=== PATIENT | male | born 1990 | race Hispanic/Latino ===

== ENCOUNTER 2024-02-01 13:10 | Emergency (ER) | payer BC ==
[~2024-02-01] VITALS: Ht 170.2 cm; Wt 83.9 kg
[2024-02-01 13:49] LABS: BASOPHILS # (AUTO) 0.08 K/uL (0.00-0.20); BASOPHILS % (AUTO) 0.8 % (0.0-5.0); EOSINOPHILS # (AUTO) 0.22 K/uL (0.00-0.70); EOSINOPHILS % (AUTO) 2.1 % (0.0-8.0); HEMATOCRIT 46.5 % (42-54); IMMATURE GRANULOCYTE ABSOLUTE 0.04 K/uL (0-1); LYMPHOCYTES # (AUTO) 1.7 K/uL (1.0-4.8); LYMPHOCYTES % (AUTO) 16.2 % (21.0-51.0); MEAN CORPUSCULAR HEMOGLOBIN 30.6 pg (27.0-33.0); MEAN CORPUSCULAR HGB CONC 34.2 g/dL (32.0-36.0); MEAN CORPUSCULAR VOLUME 89.6 fL (79-99); MONOCYTES # (AUTO) 0.7 K/uL (0.1-1.0); MONOCYTES % (AUTO) 6.3 % (3.0-13.0); NEUTROPHILS # (AUTO) 7.8 K/uL (1.8-7.7); NEUTROPHILS % (AUTO) 74.2 % (40.0-77.0); PLATELET COUNT (AUTO) 204 K/uL (130-400); RED BLOOD CELL COUNT(AUTO) 5.19 MIL/uL (4.50-6.20); WHITE BLOOD COUNT (AUTO) 10.4 K/uL (4.8-10.8)
--- NOTE | 2024-02-01 13:49 | ERN ---
ED Note History of Present Illness Stated Complaint: VENOMOUS SPIDER BITE,AREA GETTING SUPER HOT Chief Complaint: Arm Swelling/Redness Time Seen by MD: 13:11 Dictation: Patient is a 33-year-old male with past medical history of asthma came to the ED with a chief complaint of pain in the right forearm since 1 week. Patient found insect bite on right dorsolateral aspect of forearm week ago after he woke up from sleep. Patient denies injury or accident. Patient informed about pus coming out of the lesion and had itching in the area. Patient denies chills, fever, headaches. The pain started radiating over the forearm and the area feels warm to touch. Allergies: Coded Allergies: No Known Allergies (Unverified Allergy, Unknown, 02/01/24) Home Meds Active Scripts Cephalexin Monohydrate (Keflex) 500 Mg Cap, 500 MG PO BID for 10 Days, #20 CAP Prov:VERNELL HUMPHREY MD 02/01/24 Past Medical History Past Medical History: Asthma Surgical History: Other Surgical History Other: HERNIA Review of System Dictation Constitutional-no chills, weight loss/gain, fever Eyes-no injury, pain, redness and discharge ENT-no injury, pain, swelling Cardiovascular no chest pain, palpitations, edema Respiratory no shortness of breath, cough, wheezing Abdomen/GI-no abdominal pain, diarrhea, constipation, vomiting, nausea Back no injury and pain Genitourinary no injury, bleeding and discharge Musculoskeletal/extremities no injury, deformity Skin 1 X 1 lesion, spreading, itching and pain in the right dorsolateral aspect of forearm Neuro-no headache, weakness, numbness, tingling, seizures, tremors Psych-no suicidal ideation, homicidal ideation, hallucinations, depression, anxiety, memory loss Initial Vital Sign VS Vital Signs Date Time Temp Pulse Resp B/P (MAP) Pulse Ox O2 Delivery O2 Flow Rate FiO2 02/01/24 13:19 98.8 96 16 132/84 96 Room Air 0 02/01/24 14:12 21 Physical Exam Dictation General-patient is awake alert and oriented Head/neck-normocephalic, atraumatic Eyes-PERRL, EOMI, vision at baseline Neck-trachea midline, supple, no nuchal rigidity Cardiovascular-RRR, normal S1/S2, no MRG is, no JVD Respiratory-no distress, wheezing, rales, rhonchi Abdomen-no tenderness, guarding, soft, nondistended Skin right dorsal lateral forearm -skin is tender, warm to touch, indurated Musculoskeletal/extremities pulses equal, no cyanosis Neuro-COA X 4, GCS 15, strength 5/5, CN 2-12 intact Psych-normal behavior, mood and affect normal Results (Laboratory/Radiology) Laboratory/Radiology Laboratory Tests Test 02/01/24 13:43 White Blood Count 10.4 K/uL (4.8-10.8) Red Blood Count 5.19 MIL/uL (4.50-6.20) Hemoglobin 15.9 g/dL (14.0-18.0) Hematocrit 46.5 % (42-54) Mean Corpuscular Volume 89.6 fL (79-99) Mean Corpuscular Hemoglobin 30.6 pg (27.0-33.0) Mean Corpuscular Hemoglobin Concent 34.2 g/dL (32.0-36.0) Red Cell Distribution Width 13.0 % (11.0-15.5) Platelet Count 204 K/uL (130-400) Mean Platelet Volume 11.2 fL (7.5-10.5) H Immature Granulocyte % (Auto) 0.4 % (0-1) Neutrophils (%) (Auto) 74.2 % (40.0-77.0) Lymphocytes (%) (Auto) 16.2 % (21.0-51.0) L Monocytes (%) (Auto) 6.3 % (3.0-13.0) Eosinophils (%) (Auto) 2.1 % (0.0-8.0) Basophils (%) (Auto) 0.8 % (0.0-5.0) Neutrophils # (Auto) 7.8 K/uL (1.8-7.7) H Lymphocytes # (Auto) 1.7 K/uL (1.0-4.8) Monocytes # (Auto) 0.7 K/uL (0.1-1.0) Eosinophils # (Auto) 0.22 K/uL (0.00-0.70) Basophils # (Auto) 0.08 K/uL (0.00-0.20) Absolute Immature Granulocyte (auto 0.04 K/uL (0-1) Nucleated Red Blood Cells 0.0 % (0.0-0.19) Sodium Level 140 mmol/L (136-145) Potassium Level 3.9 mmol/L (3.5-5.1) Chloride Level 103 mmol/L (101-111) Carbon Dioxide Level 30 mmol/L (21-32) Blood Urea Nitrogen 15 mg/dL (7-18) Creatinine 1.0 mg/dL (0.5-1.3) Glomerular Filtration Rate Calc 102 mL/min (>90) Random Glucose 124 mg/dL (70-105) H Total Calcium 8.9 mg/dL (8.5-10.1) Labs Reviewed?: Yes ED Course ED Course Orders Procedure Category Date Status Time Cbc With Differential LAB 02/01/24 Complete 13:30 Basic Metabolic Panel LAB 02/01/24 Complete 13:30 Diph,Pertuss(Acell),Tet PHA 02/01/24 Complete Vac/Pf (Tdap) 13:30 Ceftriaxone 1g Vial PHA 02/01/24 Complete (Rocephine 1g Inj) 13:30 Forearm 2vws Rt RAD 02/01/24 Resulted 13:30 Lidocaine Hcl 1% 20ml PHA 02/01/24 Complete Vial (Lidocaine Hc 13:54 Current Medications Medications (Trade) Dose Ordered Sig/Amari Route PRN Reason Start Time Stop Time Status Last Admin Dose Admin Ceftriaxone Sodium (ROCEphine 1G INJ) 1 gm ONCE ONCE IM 02/01/24 13:30 02/01/24 13:37 DC 02/01/24 13:55 Diphtheria/ Tetanus/Acell Pertussis (Tdap) 0.5 ml ONCE ONCE IM 02/01/24 13:30 02/01/24 13:37 DC 02/01/24 14:03 Lidocaine HCl (Lidocaine HCl 1% 20ml Vial) 20 ml STK-MED ONCE .ROUTE 02/01/24 13:54 02/01/24 13:55 DC Vital Signs Date Time Temp Pulse Resp B/P (MAP) Pulse Ox O2 Delivery O2 Flow Rate FiO2 02/01/24 14:54 98.4 92 16 126/77 96 Room Air* 0 21 02/01/24 14:12 98.4 96 16 128/78 96 Room Air* 0 21 02/01/24 13:19 98.8 96 16 132/84 96 Room Air 0 Medical Decision Making MDM INITIAL IMPRESSION Initial history and physical concerning for cellulitis, insect bite, soft tissue infection Contributing medical problems: Works outdoors I have reviewed the triage nursing notes and vital signs. Initial plan: Laboratory evaluation and x-ray DATA REVIEW I have reviewed additional NN, repeat VS, and monitoring where indicated. Heart rate, blood pressure, and O2 saturation are acceptable. ED COURSE Interventions: Labs and Tdap and antibiotics Reassessment: Not indicated DISPOSITION Final diagnostic impression: Soft tissue infection I discussed my findings, clinical impression and treatment recommendations with the patient. My final plan for disposition was made based upon -mild risk of complications and potential morbidity of the patient's condition. -Discussion with the patient regarding management options. Patient will be discharged with medication DX & DISP Disposition: Discharge Departure Impression: Primary Impression: Soft tissue infection Additional Impression: Insect bite Condition: Stable Scripts Cephalexin Monohydrate (Keflex) 500 Mg Cap 500 MG PO BID for 10 Days, #20 CAP Prov: VERNELL HUMPHREY MD 02/01/24 Additional Instructions: Come back to the ER if you have any acute or emergency symptoms Take the prescribed antibiotic medicine you are given as directed until it is gone. Take it even if you feel better. It treats the infection and stops it from returning. Not taking all the medicine can make future infections hard to treat. Keep the infected area clean. Follow all wound care instructions from your healthcare provider. When possible, raise the infected area above the level of your heart. This helps keep swelling down. Meet the boundary of the infected area so you can tell if it is growing. Talk with your healthcare provider if you are in pain. Ask what kind of [id number] medicine you can take for pain. Apply clean bandages as advised. Dispose of dirty bandages in a plastic bag that is tied at the top. Wash your hands often to prevent spreading the infection. Always wash your hands before and after cleaning the area. If anyone helps you with your care, have them do the same. Take your temperature once a day for a week. Time of Disposition: 14:48 I have reviewed the case I was present and participated in the care of this patient alongside the resident physician. I have reviewed and personally made and improve the management plan that is documented in the note by myself or the resident physician. I acknowledge full responsibility for the patient's management plan. VERNELL HUMPHREY MD Feb 01, 2024 13:49 RADHA GIANG MD Feb 02, 2024 10:03
[2024-02-01] MEDS: cefTRIAXone 1G VIAL IM ONE (13:55)
[2024-02-01 13:58] LABS: POTASSIUM 3.9 mmol/L (3.5-5.1)
[2024-02-01] MEDS: DIPH,PERTUSS(ACELL),TET VAC/PF 0.5 ML VIAL IM ONE (14:03)
[2024-02-01] MEDS: LIDOCAINE HCL 1% 20 ML VIAL ONE (14:33)
[2024-02-01] MEDS ORDERED: CEPH500B PO (14:47)
[2024-02-01 14:54] VITALS: BP 126/77; PULSE 92; RESP 16; TEMP 98.4; O2SAT 96
--- NOTE | 2024-02-01 15:36 | HMCIMG ---
FOREARM 2VWS RT HISTORY: Cellulitis COMPARISON: None TECHNIQUE: 2 images of right forearm were obtained. FINDINGS: There is no acute displaced fracture or dislocation. Degenerative changes are seen. IMPRESSION: 1. Findings as described above.
== END 2024-02-01 14:55 | disposition home or self-care (01) ==
LOC: EDH 13:10
DX: S50.861A Insect bite (nonvenomous) of right forearm, initial encounter (principal); L08.9 Local infection of the skin and subcutaneous tissue, unspecified; J45.909 Unspecified asthma, uncomplicated; W57.XXXA Bitten or stung by nonvenomous insect and other nonvenomous arthropods, initial encounter
CPT/HCPCS: 99284; 80048; 85025; 36415; 90715; 73090; 96372; 90471; J0696